=== PATIENT | female | born 1970 | race Caucasian/White ===

== ENCOUNTER → 2016-09-06 | Outpatient (CLI) | payer OTHER ==
[~2016-09-06] MED LIST: ACCUNEB 0.1.25 MG/1 INH; ADDERALL30 MG PO; ATARAX25 MG PO; BACTRIM DS 8001 TA1 PO; CELEXA10 MG PO; CLEOCIN150 MG PO; CLINDAMYCIN HC300 MG PO; DITROPAN XL10 MG PO; FLEXERIL10 MG PO; HYDROCODONE BIT1 T11 PO; LIDEX0.05% T; LISINOPRIL20 MG PO; NAPROSYN500 MG PO; PREDNICOT20 MG PO; PYRIDIUM200 MG PO; Peridex 473 ML473 ML PO; TRILEPTAL; XOPENEX0.31 MG INH; XOPENEX1.25 MG/0. IH
--- NOTE | ~2016-09-06 | PF ---
[place], [place] PULMONARY FUNCTION TEST [id number] UNIT #: [id number] ROOM: DOCTOR: JOCELYNE GENTILE MD,JADYN BIRTHDATE: [birth year] DOS: 09/06/2016 The test was ordered by Kathy Collins, the nurse practitioner. HISTORY: The patient is 45-year-old -[place] female, height of 64 inches, weight of 215 pounds, has a complete pulmonary function testing done with history of bronchial asthma and ongoing symptoms of productive cough with frequent wheezing and dyspnea with exertion. Tobacco use noted 0.5 packs of cigarettes per day for 35 years. SPIROMETRY: The FVC was recorded at 3.44 liters, 115% predicted value normal with 12% partial improvement occurred post-bronchodilator test as well. FEV1 was noted 2.85 L, 118% predicted value normal with 15% further improvement occurred post-bronchodilator test. Ratio of FEV1/FVC was noted as 18%. Flow volume loop was noted findings of reversible obstructive lung disease. LUNG VOLUME: Thoracic gas volume recorded as 65%, residual volume 62%, total lung capacity 90%. Lung volumes were noted normal. The patient noted as normal at 83%. The patient's airway resistance, passive conductance were noted normal with partial improvement occurred post-bronchodilator test. FINAL IMPRESSION: Evidence of reversible obstructive lung disease was noted. JADYN CASANOVA MD CM:PFREPORT:PULMONARY FUNCTION TEST [id number] JADYN GENTILE MD
== END ==
LOC: CP 14:44
DX: J45.909 Unspecified asthma, uncomplicated (principal); R05 Cough

== ENCOUNTER → 2018-02-06 | Outpatient (CLI) | payer OTHER ==
[2018-02-06 11:38] LABS: PTH INTACT 55.9 pg/mL (18.5-88.0); VITAMIN D, 25-HYDROXY 9.5 ng/mL (30-100)
== END | disposition home or self-care (01) ==
LOC: LAB 10:08
PROVIDERS: Nurse Practitioner Family
DX: E83.51 Hypocalcemia (principal)

== ENCOUNTER → 2020-01-01 | Outpatient (CLI) | payer OTHER | END | disposition home or self-care (01) | LOC: RAD 08:50 | PROVIDERS: ATTEND Nurse Practitioner Family | DX: M17.11 Unilateral primary osteoarthritis, right knee (principal) ==

== ENCOUNTER → 2021-01-27 | Outpatient (CLI) | payer OTHER | END | disposition home or self-care (01) | LOC: COVID19 15:05 | PROVIDERS: ATTEND Podiatrist Foot & Ankle Surgery | DX: Z11.52 Encounter for screening for COVID-19 (principal) ==

== ENCOUNTER → 2021-12-29 | Outpatient (CLI) | payer OTHER ==
[2021-12-29 15:23] LABS: BASO % 0.5 % (0.0-1.0); EOS % 0.7 % (1.0-4.0); HEMATOCRIT 38.6 % (37.0-47.0); LYMPH # 2.1 10*3/uL (1.3-4.4); LYMPH % 48.8 % (27.0-41.0); MEAN CELL VOLUME 88.1 fl (81.0-99.0); MEAN CORPUSCULAR HGB 30.4 pg (27.0-31.0); MEAN CORPUSCULAR HGB CONC 34.5 g/dl (33.0-37.0); MEAN PLATELET VOLUME 9.4 fl (9.6-12.3); MONO # 0.3 10*3/uL (0.1-1.0); MONO % 7.2 % (3.0-9.0); NEUT # 1.8 10*3/uL (2.3-7.9); NEUT % 42.8 % (47.0-73.0); PLATELET COUNT AUTOMATED 247 10*3/uL (130-400); RED BLOOD COUNT 4.38 10*6/uL (4.10-5.10); RED CELL DISTRI WIDTH 12.2 % (0-14.5); WHITE BLOOD COUNT 4.3 10*3/uL (4.8-10.8)
[2021-12-29 15:39] LABS: ALKALINE PHOSPHATASE 89 U/L (45-117); BUN 12 mg/dl (7-24); CHLORIDE 112 mmol/L (98-107); CHOLESTEROL 186 mg/dL (<200); CREATININE 0.53 mg/dL (0.55-1.02); LDL CHOLESTEROL 86 mg/dL (9-159); POTASSIUM 3.7 mmol/L (3.5-5.1); SGOT/AST 18 IU/L (3-35); SGPT/ALT 30 U/L (12-78); SODIUM 141 mmol/L (136-145); TOTAL PROTEIN 7.2 gm/dL (6.4-8.2); TRIGLYCERIDES 297 mg/dl (<150)
== END | disposition home or self-care (01) ==
LOC: LAB 14:53
PROVIDERS: ATTEND Nurse Practitioner Family
DX: E78.5 Hyperlipidemia, unspecified (principal); I10 Essential (primary) hypertension; E55.9 Vitamin D deficiency, unspecified

== ENCOUNTER → 2022-05-25 | Outpatient (CLI) | payer OTHER | END | disposition home or self-care (01) | LOC: MAMMO 00:26 | PROVIDERS: ATTEND Nurse Practitioner Family | DX: Z12.31 Encounter for screening mammogram for malignant neoplasm of breast (principal) ==

== ENCOUNTER 2022-06-06 08:03 | Emergency (ER) | payer OTHER ==
[~2022-06-06] VITALS: Wt 93.0 kg
[2022-06-06 08:54] LABS: BASO % 0.4 % (0.0-1.0); EOS % 0.4 % (1.0-4.0); HEMATOCRIT 38.5 % (37.0-47.0); LYMPH # 1.7 10*3/uL (1.3-4.4); LYMPH % 33.6 % (27.0-41.0); MEAN CELL VOLUME 89.3 fl (81.0-99.0); MEAN CORPUSCULAR HGB 31.1 pg (27.0-31.0); MEAN CORPUSCULAR HGB CONC 34.8 g/dl (33.0-37.0); MEAN PLATELET VOLUME 8.8 fl (9.6-12.3); MONO # 0.3 10*3/uL (0.1-1.0); MONO % 5.6 % (3.0-9.0); NEUT % 59.8 % (47.0-73.0); PLATELET COUNT AUTOMATED 263 10*3/uL (130-400); RED BLOOD COUNT 4.31 10*6/uL (4.10-5.10); RED CELL DISTRI WIDTH 12.1 % (0-14.5)
[2022-06-06 09:20] LABS: ALKALINE PHOSPHATASE 80 U/L (46-116); BUN 8 mg/dl (9-23); CHLORIDE 108 mmol/L (98-107); SGPT/ALT 16 U/L (10-49); TOTAL PROTEIN 6.6 gm/dL (6.0-8.0)
[2022-06-06] MEDS ORDERED: VIBRA-TAB100 MG PO (13:10)
== END 2022-06-06 13:12 | disposition home or self-care (01) ==
LOC: ED 08:03
PROVIDERS: Emergency Medicine
DX: N61.1 Abscess of the breast and nipple (principal); J45.909 Unspecified asthma, uncomplicated; I10 Essential (primary) hypertension; E78.00 Pure hypercholesterolemia, unspecified; Z88.0 Allergy status to penicillin; Z98.890 Other specified postprocedural states

== ENCOUNTER 2022-09-11 10:16 | Emergency (ER) | payer OTHER ==
[~2022-09-11] VITALS: Ht 162.5 cm; Wt 93.0 kg
[~2022-09-11 10:16] MED LIST changes: +VIBRA-TAB100 MG PO
[2022-09-11 11:10] LABS: BASO % 0.5 % (0.0-1.0); EOS % 0.3 % (1.0-4.0); HEMATOCRIT 40.7 % (37.0-47.0); LYMPH # 1.7 10*3/uL (1.3-4.4); LYMPH % 42.8 % (27.0-41.0); MEAN CELL VOLUME 86.8 fl (81.0-99.0); MEAN CORPUSCULAR HGB 29.6 pg (27.0-31.0); MEAN CORPUSCULAR HGB CONC 34.2 g/dl (33.0-37.0); MEAN PLATELET VOLUME 9.2 fl (9.6-12.3); MONO # 0.2 10*3/uL (0.1-1.0); NEUT # 2.1 10*3/uL (2.3-7.9); NEUT % 51.1 % (47.0-73.0); PLATELET COUNT AUTOMATED 223 10*3/uL (130-400); RED BLOOD COUNT 4.69 10*6/uL (4.10-5.10); RED CELL DISTRI WIDTH 12.2 % (0-14.5)
[2022-09-11 11:20] LABS: ACT PARTIAL THROMBO TIME 25.5 SECONDS (20.0-32.1); INTERNATIONAL NORM RATIO 0.9 (2.0-3.5)
[2022-09-11 11:26] LABS: ALKALINE PHOSPHATASE 99 U/L (46-116); BUN 10 mg/dl (9-23); CHLORIDE 109 mmol/L (98-107); POTASSIUM 3.5 mmol/L (3.4-5.1); SGPT/ALT 28 U/L (10-49); TOTAL PROTEIN 7.3 gm/dL (6.0-8.0)
[2022-09-12 05:06] LABS: HBSAG Negative (Negative); HEP B CORE AB, IGM Negative (Negative); HEPATITIS C ANTIBODY Non Reactive (Non Reactive)
== END 2022-09-11 11:00 | disposition home or self-care (01) ==
LOC: ED 10:16
PROVIDERS: Emergency Medicine
DX: S69.92XA Unspecified injury of left wrist, hand and finger(s), initial encounter (principal); Z20.5 Contact with and (suspected) exposure to viral hepatitis; J45.909 Unspecified asthma, uncomplicated; I10 Essential (primary) hypertension; E78.00 Pure hypercholesterolemia, unspecified; F90.9 Attention-deficit hyperactivity disorder, unspecified type; Z88.0 Allergy status to penicillin; W46.0XXA Contact with hypodermic needle, initial encounter; Y93.89 Activity, other specified; Y92.89 Other specified places as the place of occurrence of the external cause; Y99.8 Other external cause status

== ENCOUNTER → 2022-12-18 | Outpatient (CLI) | payer OTHER ==
[2022-12-18 16:14] LABS: BASO % 0.5 % (0.0-1.0); EOS % 0.5 % (1.0-4.0); HEMATOCRIT 39.6 % (37.0-47.0); LYMPH % 48.3 % (27.0-41.0); MEAN CORPUSCULAR HGB 29.5 pg (27.0-31.0); MEAN CORPUSCULAR HGB CONC 33.8 g/dl (33.0-37.0); MONO # 0.2 10*3/uL (0.1-1.0); MONO % 5.1 % (3.0-9.0); NEUT # 1.9 10*3/uL (2.3-7.9); NEUT % 45.4 % (47.0-73.0); PLATELET COUNT AUTOMATED 260 10*3/uL (130-400); RED BLOOD COUNT 4.55 10*6/uL (4.10-5.10); RED CELL DISTRI WIDTH 11.9 % (0-14.5); WHITE BLOOD COUNT 4.1 10*3/uL (4.8-10.8)
[2022-12-18 16:56] LABS: ALKALINE PHOSPHATASE 94 U/L (46-116); BUN 6 mg/dl (9-23); CHLORIDE 106 mmol/L (98-107); CHOLESTEROL 235 mg/dL (<200); SGPT/ALT 16 U/L (10-49); TOTAL PROTEIN 7.2 gm/dL (6.0-8.0); TRIGLYCERIDES 431 mg/dl (<150)
== END | disposition home or self-care (01) ==
LOC: LAB 15:56
PROVIDERS: ATTEND Nurse Practitioner Family
DX: E78.1 Pure hyperglyceridemia (principal); I10 Essential (primary) hypertension; E55.9 Vitamin D deficiency, unspecified

== ENCOUNTER 2024-03-31 10:10 | Emergency (ER) | payer OTHER ==
[~2024-03-31] VITALS: Ht 160 cm; Wt 81.6 kg
[2024-03-31] MEDS ORDERED: MELOXICAM15 MG PO (11:27)
== END 2024-03-31 11:29 | disposition home or self-care (01) ==
LOC: ED 10:10
DX: S09.8XXA Other specified injuries of head, initial encounter (principal); J45.909 Unspecified asthma, uncomplicated; R51.9 Headache, unspecified; R42 Dizziness and giddiness; I10 Essential (primary) hypertension; E78.00 Pure hypercholesterolemia, unspecified; F90.9 Attention-deficit hyperactivity disorder, unspecified type; Z88.0 Allergy status to penicillin; W10.8XXA Fall (on) (from) other stairs and steps, initial encounter; Y93.89 Activity, other specified; Y92.89 Other specified places as the place of occurrence of the external cause; Y99.8 Other external cause status

== ENCOUNTER 2024-09-12 10:07 | Emergency (ER) | payer OTHER ==
[~2024-09-12] VITALS: Ht 162.5 cm; Wt 86.2 kg
[~2024-09-12 10:07] MED LIST changes: +MELOXICAM15 MG PO
[2024-09-12] MEDS ORDERED: Lidocaine Hydrochloride 15 ML UDC PO ONE (10:45)
[2024-09-12] MEDS ORDERED: MG-AL HYDROXIDE/SIMETICONE 30 ML UDC PO ONE (10:45)
[2024-09-12 10:57] LABS: BASO % 0.4 % (0.0-1.0); EOS # 0.1 10*3/uL (0.0-0.4); EOS % 2.2 % (1.0-4.0); HEMATOCRIT 39.1 % (37.0-47.0); MEAN CELL VOLUME 87.7 fl (81.0-99.0); MEAN CORPUSCULAR HGB 28.9 pg (27.0-31.0); MEAN PLATELET VOLUME 8.9 fl (9.6-12.3); MONO # 0.4 10*3/uL (0.1-1.0); MONO % 7.3 % (3.0-9.0); NEUT # 2.5 10*3/uL (2.3-7.9); PLATELET COUNT AUTOMATED 238 10*3/uL (130-400); RED BLOOD COUNT 4.46 10*6/uL (4.10-5.10); RED CELL DISTRI WIDTH 12.2 % (0-14.5); WHITE BLOOD COUNT 4.9 10*3/uL (4.8-10.8)
[2024-09-12 11:18] LABS: ALKALINE PHOSPHATASE 93 U/L (46-116); BUN 13 mg/dl (9-23); CHLORIDE 106 mmol/L (98-107); LIPASE 40 U/L (12-53); POTASSIUM 4.5 mmol/L (3.4-5.1); SGPT/ALT 19 U/L (5-49); TOTAL PROTEIN 6.9 gm/dL (6.0-8.0)
[2024-09-12] MEDS ORDERED: SUCRALFATE 1 GM TAB PO ONE ×2 (11:35→11:45)
[2024-09-12] MEDS ORDERED: OMEPRAZOLE40 MG PO (13:06)
== END 2024-09-12 13:13 | disposition home or self-care (01) ==
LOC: ED 10:07
PROVIDERS: Emergency Medicine
DX: K21.9 Gastro-esophageal reflux disease without esophagitis (principal); I10 Essential (primary) hypertension; J45.909 Unspecified asthma, uncomplicated; E78.00 Pure hypercholesterolemia, unspecified; Z79.899 Other long term (current) drug therapy; Z88.0 Allergy status to penicillin